=== PATIENT | female | born 1955 | race African-American/Black ===

== ENCOUNTER 2022-03-18 05:03 | Emergency (ER) | payer SELFPAY ==
[~2022-03-18] VITALS: Ht 172.7 cm; Wt 60.0 kg
[2022-03-18 05:10] VITALS: BP 158/133
[2022-03-18] MEDS ORDERED: IBUPROFEN 600MG TABLET PO STA (05:25)
[2022-03-18 06:22] LABS: BASOPHILS % 0.7 % (0.0-2.0); EOSINOPHILS % 2.2 % (0.0-5.0); HEMATOCRIT. 44.5 % (36.0-48.0); HEMOGLOBIN. 15.6 g/dL (12.0-16.0); LYMPHOCYTES % 62.7 % (20.0-50.0); MEAN CORPUSCULAR HEMOGLOBIN 34.5 pg (28.0-32.0); MEAN CORPUSCULAR VOLUME 98.5 fL (81.0-99.0); MEAN PLATELET VOLUME 8.4 fl (7.4-10.4); MONOCYTES % 6.9 % (2.0-8.0); NEUTROPHILS % 27.5 % (40.0-76.0); PLATELET 218 x1000/uL (130-400); RED BLOOD CELL COUNT 4.51 mill/uL (4.2-5.4); RED CELL DISTRIBUTION WIDTH 12.9 % (11.6-14.6)
[2022-03-18 06:38] LABS: CHLORIDE 111 mEq/L (98-107)
[2022-03-18] MEDS ORDERED: IBUP-2029 MT (08:10)
== END 2022-03-18 08:59 | disposition home or self-care (01) ==
LOC: ER 05:03
DX: M79.81 Nontraumatic hematoma of soft tissue (principal); I49.9 Cardiac arrhythmia, unspecified; E11.9 Type 2 diabetes mellitus without complications
CPT/HCPCS: 36415; 71045; 80053; 85025; 93005; 99285